=== PATIENT | male | born 1990 | race Caucasian/White ===

== ENCOUNTER 2021-10-01 01:30 | Emergency (ER) | payer OTHER ==
[~2021-10-01] VITALS: Ht 167.6 cm; Wt 59.0 kg
[2021-10-01 01:37] VITALS: BP 101/64
--- NOTE | 2021-10-01 01:45 | NUR ---
TO BR FOR UA THEN TO LOBBY FOLLOWING TRIAGE
--- NOTE | 2021-10-01 02:26 | NUR ---
DR DEWEY EXAMINING PT IN TRIAGE
[2021-10-01] MEDS ORDERED: DOXYCYCLINE 100 MG CAP PO STA (02:27)
--- NOTE | 2021-10-01 02:29 | NUR ---
PT AMBULATED TO BED #7
[2021-10-01] MEDS ORDERED: cefTRIAXone 500 MG in LIDOCAINE MPF 1% 1 ML IM ONE (02:30)
[2021-10-01] MEDS ORDERED: PHENAZOPYRIDINE 100 MG TAB PO ONE (02:30)
[2021-10-01 02:42] LABS: APPEARANCE,URINE CLOUDY (CLEAR); BILIRUBIN,URINE NEGATIVE (NEGATIVE); BLOOD, URINE TRACE-I (NEGATIVE); COLOR,URINE YELLOW (YELLOW); LEUKOCYTE ESTERASE ,URINE 1+ (NEGATIVE); NITRITE, URINE NEGATIVE (NEGATIVE); UGLUCOSE NEGATIVE (NEGATIVE)
[2021-10-01] MEDS ORDERED: cefTRIAXone 500 MG VIAL ONE (02:44)
[2021-10-01] MEDS ORDERED: LIDOCAINE MPF 1% 5 ML ONE (02:48)
[2021-10-01 02:57] LABS: RBC,URINE 0-5 /HPF (0-5); WBC,URINE TOO MANY TO COUNT /HPF (0-5)
--- NOTE | 2021-10-01 03:41 | NUR ---
US AT BEDSIDE
--- NOTE | 2021-10-01 04:00 | NUR ---
31 y/o M BIB SELF FOR TESTICULAR PAIN AND SWELLING X3 DAYS. PT STATES PAIN 9/10. PT STATES IT IS A BURNING PAIN. PT STATES BLOOD IN URINE BUT NO BURNING DURING URINATION. PT STATES NAUSEA/ VOMITING/ FEVER/ WAS ONLY 1 DAY THEN STOPPED. SKIN IS PINK/WARM/DRY; AAOX4 WITH EVEN AND STEADY GAIT; PT STATES HE HAS UNPROTECTED SEX. PT ALSO STATES HE MAY HAVE HURT DURING EXERCISE PMH:ASTHMA RX: NONE NKA
[2021-10-01] MEDS ORDERED: HYDROcodone/APAP 5/325 MG 1 TAB TAB PO ONE (04:15)
[2021-10-01] MEDS ORDERED: KETOROLAC 30 MG/ML VIAL IM ONE (04:15)
[2021-10-01] MEDS ORDERED: DOXY-690 PO (04:54)
[2021-10-01] MEDS ORDERED: ACET-5629 PO (04:54)
[2021-10-01] MEDS ORDERED: NAPR-54 PO (04:54)
[2021-10-01 05:28] VITALS: BP 106/70
--- NOTE | 2021-10-01 05:28 | NUR ---
Patient discharged with v/s stable. Written and verbal after care instructions given and explained. Patient alert, oriented and verbalized understanding of instructions. Ambulatory with steady gait. All questions addressed prior to discharge. ID band removed. Patient advised to follow up with PMD. Rx of percocet, vibramycin, naprosyn given. Opportunity to ask questions provided and answered.
--- NOTE | 2021-10-01 06:14 | NUR ---
The patient's care was reviewed and supervised by Melissa Lara RN.
== END 2021-10-01 05:28 | disposition home or self-care (01) ==
LOC: MED 01:30
DX: N45.1 Epididymitis (principal); Z79.891 Long term (current) use of opiate analgesic; Z79.1 Long term (current) use of non-steroidal anti-inflammatories (NSAID); Z79.2 Long term (current) use of antibiotics
CPT/HCPCS: 76870; 81001; 87086; 87491; 96372; 99285; J0696; J1885; J2001; Q0092

== ENCOUNTER 2021-10-12 21:28 | Emergency (ER) | payer OTHER ==
[~2021-10-12] VITALS: Ht 170.2 cm; Wt 56.7 kg
[~2021-10-12 21:28] MED LIST: ACET-5629 PO; DOXY-690 PO; NAPR-54 PO
[2021-10-12 21:45] VITALS: BP 102/63
--- NOTE | 2021-10-12 22:30 | NUR ---
31 Y.O M PT BIB SELF, STATES HE HAS BEEN HAVING LEFT GROIN PAIN FOR ABOUT 1 WEEK. PT DENIES ANY OTHER SYMPTOMS, DENIES SOB, N/V. DENIES ANY OTHER MEDICAL HISTORY.
[2021-10-12] MEDS ORDERED: ACET-10509 PO (22:50)
[2021-10-12 23:08] VITALS: BP 102/63
== END 2021-10-12 23:00 | disposition home or self-care (01) ==
LOC: MED 21:28
DX: R10.32 Left lower quadrant pain (principal); N45.1 Epididymitis; Z79.899 Other long term (current) drug therapy
CPT/HCPCS: 99282

== ENCOUNTER 2021-11-04 02:50 | Emergency (ER) | payer OTHER ==
[~2021-11-04] VITALS: Ht 167.6 cm; Wt 59.0 kg
[~2021-11-04 02:50] MED LIST changes: +ACET-10509 PO
[2021-11-04 03:04] VITALS: BP 109/64
--- NOTE | 2021-11-04 03:04 | NUR ---
to bed ambulatory
--- NOTE | 2021-11-04 03:16 | NUR ---
NO NURSING INTERVENTIONS NEEDED.
[2021-11-04 03:23] VITALS: BP 109/64
--- NOTE | 2021-11-04 03:23 | NUR ---
Patient discharged with v/s stable. Written and verbal after care instructions given and explained. Patient verbalized understanding. Ambulatory with steady gait. All questions addressed prior to discharge. Advised to follow up with PMD.
== END 2021-11-04 03:23 | disposition home or self-care (01) ==
LOC: MED 02:50
DX: M79.605 Pain in left leg (principal); F17.200 Nicotine dependence, unspecified, uncomplicated; F12.90 Cannabis use, unspecified, uncomplicated; Z79.899 Other long term (current) drug therapy
CPT/HCPCS: 99281

== ENCOUNTER 2022-12-26 13:20 | Emergency (ER) | payer OTHER ==
[~2022-12-26] VITALS: Ht 170.2 cm; Wt 59.0 kg
[2022-12-26 13:49] VITALS: BP 110/61; PULSE 75; RESP 18; TEMP 98.1; O2SAT 100
[2022-12-26] MEDS ORDERED: ACETAMINOPHEN EXTRA STRENGTH 500 MG TAB PO ONE (15:30)
[2022-12-26] MEDS ORDERED: IBUP-1842 PO (16:52)
[2022-12-26 17:31] LABS: APPEARANCE,URINE CLEAR (CLEAR); BILIRUBIN,URINE NEGATIVE (NEGATIVE); BLOOD, URINE NEGATIVE (NEGATIVE); COLOR,URINE YELLOW (YELLOW); LEUKOCYTE ESTERASE ,URINE NEGATIVE (NEGATIVE); NITRITE, URINE NEGATIVE (NEGATIVE); PROTEIN,URINE NEGATIVE (NEGATIVE); UGLUCOSE NEGATIVE (NEGATIVE); UROBILINOGEN,URINE 0.2 EU/dL (0.2 - 1)
== END 2022-12-26 17:57 | disposition home or self-care (01) ==
LOC: MED 13:20
DX: S00.03XA Contusion of scalp, initial encounter (principal); L72.0 Epidermal cyst; I86.1 Scrotal varices; N43.3 Hydrocele, unspecified; Z79.899 Other long term (current) drug therapy; W19.XXXA Unspecified fall, initial encounter; Y93.89 Activity, other specified; Y92.89 Other specified places as the place of occurrence of the external cause; Y99.8 Other external cause status
CPT/HCPCS: 76870; 81003; 87086; 87491; 99284; Q0092